=== PATIENT | male | born 2000 | race Two or more races ===

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

== ENCOUNTER 2021-04-27 16:02 | Outpatient (CLI) | payer OTHER, SELFPAY | END 2021-04-27 23:59 | disposition short-term general hospital (02) | LOC: IMMUN 05-04 16:03 | PROVIDERS: PCP Family Medicine; Visit Provider Family Medicine | DX: Z23 Encounter for immunization (principal) ==